=== PATIENT | male | born 1985 | race Caucasian/White ===

== ENCOUNTER 2017-04-30 11:19 | Emergency (ER) | payer BC ==
[~2017-04-30] VITALS: Ht 172.7 cm; Wt 77.0 kg
[2017-04-30 11:25] VITALS: Ht 172.7 cm; Wt 77.0 kg
--- NOTE | 2017-04-30 13:01 | RADRPT ---
PROCEDURE: XR Humerus. CLINICAL INDICATION: Skin abscess. History of ORIF. TECHNIQUE: AP and lateral views of the right humerus were obtained. COMPARISON: No prior studies are available for comparison. FINDINGS: Lateral plate and screw fixation of the left humeral head and proximal shaft is present. The remaind er of the right humerus appears intact. Shoulder and elbow joints are aligned. Soft tissues are with in normal limits.. .. The soft tissues are unremarkable. IMPRESSION: 1. Fixation hardware at the right proximal humerus. 2. No acute fracture or dislocation. RPTAT: GG .Cholo Huynh MD, Date Time Electronically viewed and signed by .Cholo Huynh MD, on 04/30/2017 13:00 .L/
[2017-04-30] MEDS ORDERED: LIDOCAINE 1% (MDV) 20 ML INJ SC ONE (13:30)
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
== END 2017-04-30 13:42 | disposition home or self-care (01) ==
LOC: FTE 11:19
DX: L02.413 Cutaneous abscess of right upper limb (principal)

== ENCOUNTER 2017-05-05 02:02 | Emergency (ER) | payer BC ==
[~2017-05-05] VITALS: Ht 170.2 cm; Wt 72.7 kg
[2017-05-05 02:11] VITALS: Ht 170.2 cm; Wt 72.7 kg
[2017-05-05] MEDS ORDERED: IBUP-1542 PO (02:53)
[2017-05-05] MEDS ORDERED: CEPH-443 PO (02:53)
--- NOTE | 2017-05-05 03:12 | ERD ---
ER Documentation Chief Complaint Date/Time DATE: 05/05/17 TIME: 03:07 Chief Complaint right upper arm abscess draining. i&d on 04/30 HPI 31-year-old male presents here in emergency department for a wound evaluation, patient had incision and drainage than on the right upper arm 5 days ago, it continues to be draining, he was supposed to be closed, continues to be open, a meat like structure is blocking the opening. Patient still continues to have the pain sharp pain 4/10, as was upon touching the area. ROS All systems reviewed and are negative except as per history of present illness. Medications Home Meds Active Scripts Ibuprofen* (Motrin*) 600 Mg Tab, 600 MG PO Q6H Y for PAIN AND OR ELEVATED TEMP, #30 TAB Prov:RUDY DOMINGUEZ SENSOR OPERATOR 05/05/17 Cephalexin* (Keflex*) 500 Mg Capsule, 500 MG PO QID for 10 Days, CAP Prov:RUDY DOMINGUEZ SENSOR OPERATOR 05/05/17 Reported Medications [none] Unknown Strength No Conflict Check 08/12/16 Allergies Allergies: Coded Allergies: No Known Allergy (Unverified , 02/29/16) PMhx/Soc Medical and Surgical Hx: pt denies Medical Hx History of Surgery: Yes (right shoulder surgery) Anesthesia Reaction: No Hx Neurological Disorder: No Hx Respiratory Disorders: No Hx Cardiac Disorders: No Hx Psychiatric Problems: No Hx Miscellaneous Medical Probl: No Hx Alcohol Use: Yes (social) Hx Substance Use: No Hx Tobacco Use: No Smoking Status: Current some day smoker FmHx Family History: No coronary disease, No diabetes, No other Physical Exam Vitals Vital Signs Date Time Temp Pulse Resp B/P Pulse Ox O2 Delivery O2 Flow Rate FiO2 05/05/17 02:11 97.7 73 16 154/92 99 Physical Exam GENERAL: The patient is well developed and appropriate for usual state of health, in no apparent distress. CHEST: Clear to auscultation bilaterally. There are no rales, wheezes or rhonchi. HEART: Regular rate and rhythm. No murmurs, clicks, rubs or gallops. No S3 or S4. ABDOMEN: Soft, nontender and nondistended. Good bowel sounds. No rebound or guarding. No gross peritonitis. No gross organomegaly or masses. No Garcia sign or McBurney point tenderness. BACK: No midline or flank tenderness. EXTREMITIES: Equal pulses bilaterally. There is no peripheral clubbing, cyanosis or edema. No focal swelling or erythema. Full range of motion. Grossly neurovascularly intact. NEURO: Alert and oriented. Cranial nerves 2-12 intact. Motor strength in all 4 extremities with 5/5 strength. Sensation grossly intact. Normal speech and gait. SKIN: There is no apparent rash or petechia. The skin is warm and dry. HEMATOLOGIC AND LYMPHATIC: There is no evidence of excessive bruising or lymphedema. No gross cervical, axillary, or inguinal lymphadenopathy. Procedures/MDM Medical decision making: Patient symptoms most likely consistent with a healing soft tissue abscess, at this time, there is a subcutaneous tissue blocking the opening, it is venting it from scarring up in closing, this time, there is no symptoms of any more infection, the wound was partially approximated using 1 staple healing process. Patient Keflex to prevent infection and ibuprofen for pain. Patient was advised to have a wound check in 2 days. Patient is advised to return to emergency department for any worsening symptoms. Patient was advised to have staple removed in 7-10 days. Disposition: Home. Stable. Departure Diagnosis: Primary Impression: Encounter for wound re-check Condition: Stable Patient Instructions: Wound Care RUDY DOMINGUEZ NP May 05, 2017 03:12
== END 2017-05-05 03:44 | disposition home or self-care (01) ==
LOC: FTE 02:02
DX: Z48.01 Encounter for change or removal of surgical wound dressing (principal); F17.210 Nicotine dependence, cigarettes, uncomplicated
CPT/HCPCS: 99283

== ENCOUNTER → 2017-09-25 | Outpatient (CLI) | END | disposition home or self-care (01) ==

== ENCOUNTER 2019-03-02 14:04 | Emergency (ER) | payer BC ==
[~2019-03-02] VITALS: Ht 170.2 cm; Wt 76.4 kg
[~2019-03-02 14:04] MED LIST: CEPH-443 PO; IBUP-1542 PO
[2019-03-02 14:06] VITALS: Ht 170.2 cm; Wt 76.4 kg
[2019-03-02] MEDS ORDERED: SOD CHLORIDE 0.9% 1,000 ML IV STA (14:32)
[2019-03-02 16:25] VITALS: BP 142/98; PULSE 77; RESP 20
--- NOTE | 2019-03-02 17:09 | ERD ---
ER Documentation Chief Complaint Chief Complaint SHAKEY CLAMMY DIZZINESS X 2 HOURS. HPI This is a 33-year-old male with no significant past medical history who is presenting for symptoms of near syncope. The patient reports waking up this morning and feeling fine. 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 He also reported feeling clammy. The symptoms waxed and waned for 1 to 2 hours before he decided to come to the emergency department. The patient reports poor sleep hygiene, not sleeping enough. He reports drinking less water recently than is typical for him. He also endorses not eating anything today. That said, the patient does not endorse any specific alleviating or exacerbating factors. The patient denies fever or chills. The patient has had no headache or vision changes. The patient does not endorse neck or back pain. The patient has had no chest pain or trouble breathing. The patient denies nausea or vomiting. The patient denies abdominal pain. The patient denies changes to bowel movements or urination. The patient has had no focal deficits. The patient has had no weakness or numbness or tingling to the face or extremities. ROS All systems reviewed and are negative except as per history of present illness. Medications Home Meds Discontinued Reported Medications [none] Unknown Strength No Conflict Check 08/12/16 Discontinued Scripts Ibuprofen* (Motrin*) 600 Mg Tab, 600 MG PO Q6H PRN for PAIN AND OR ELEVATED TEMP, #30 TAB Prov:RUDY DOMINGUEZ NP 05/05/17 Cephalexin* (Keflex*) 500 Mg Capsule, 500 MG PO QID for 10 Days, CAP Prov:RUDY DOMINGUEZ NP 05/05/17 Allergies Allergies: Coded Allergies: No Known Allergy (Unverified , 02/29/16) PMhx/Soc History of Surgery: Yes (right shoulder surgery) Anesthesia Reaction: No Hx Neurological Disorder: No Hx Respiratory Disorders: No Hx Cardiac Disorders: No Hx Psychiatric Problems: No Hx Miscellaneous Medical Probl: No Hx Alcohol Use: Yes (social) Hx Substance Use: No Hx Tobacco Use: No Smoking Status: Never smoker FmHx Family History: No diabetes Physical Exam Vitals Vital Signs Date Temp Pulse Resp B/P (MAP) Pulse Ox O2 O2 Flow FiO2 Time Delivery Rate 03/02/19 77 20 142/98 100 Room Air 16:25 (113) 03/02/19 97.4 102 18 173/98 99 14:06 (123) Physical Exam Const: No apparent distress, well-developed, well-nourished Head: Normocephalic, Atraumatic Eyes: Normal Conjunctiva. Extraocular movements intact. ENT: Normal External Ears, Nose and Mouth. Neck: Full range of motion. No meningismus. Resp: Clear to auscultation bilaterally, No wheezes, rales or rhonchi Cardio: Regular rate and rhythm. No murmurs, rubs or gallops Abd: Soft, non tender, non distended. Normal bowel sounds Skin: No petechiae or rashes Back: No midline tenderness. No CVA tenderness Ext: No cyanosis, or edema Neur: Awake and alert, oriented 4. Cranial nerves intact. No facial droop. Normal strength, sensation and coordination. Psych: Normal Mood and Affect Result Diagram: 03/02/19 1500 03/02/19 1500 Results 24 hrs Laboratory Tests Test 03/02/19 14:48 03/02/19 15:00 Bedside Glucose 95 mg/dL White Blood Count 7.3 10^3/ul Red Blood Count 5.53 10^6/ul Hemoglobin 16.1 g/dl Hematocrit 46.1 % Mean Corpuscular Volume 83.4 fl Mean Corpuscular Hemoglobin 29.1 pg Mean Corpuscular Hemoglobin Concent 34.9 g/dl Red Cell Distribution Width 12.9 % Platelet Count 232 10^3/UL Mean Platelet Volume 11.5 fl Immature Granulocytes % 0.400 % Neutrophils % 64.6 % Lymphocytes % 27.5 % Monocytes % 5.1 % Eosinophils % 1.9 % Basophils % 0.5 % Nucleated Red Blood Cells % 0.0 /100WBC Immature Granulocytes # 0.030 10^3/ul Neutrophils # 4.7 10^3/ul Lymphocytes # 2.0 10^3/ul Monocytes # 0.4 10^3/ul Eosinophils # 0.1 10^3/ul Basophils # 0.0 10^3/ul Nucleated Red Blood Cells # 0.0 10^3/ul Sodium Level 142 mmol/L Potassium Level 3.7 mmol/L Chloride Level 104 mmol/L Carbon Dioxide Level 24 mmol/L Anion Gap 14 Blood Urea Nitrogen 12 mg/dl Creatinine 0.92 mg/dl Est Glomerular Filtrat Rate mL/min > 60 mL/min Glucose Level 102 mg/dl Calcium Level 9.6 mg/dl Troponin I < 0.012 ng/ml Current Medications Medications Dose Sig/Kusum Start Time Status Last (Trade) Ordered Route PRN Stop Time Admin Dose Reason Admin Sodium 1,000 ml @ Q1H STAT 03/02/19 DC 03/02/19 Chloride 1,000 mls/hr IV 14:32 14:41 03/02/19 15:31 Procedures/MDM MDM The patient's presentation warrants further investigation. Previous medical records, if available, were reviewed. LABS The patient's laboratory testing was obtained and reviewed. No emergent treatment was required unless described below. CBC: No E/o systemic infection or severe anemia or thrombocytopenia Chemistry: No E/o severe acidosis or alkalosis or renal failure or diabetic ketoacidosis Troponin: No E/o acute ischemia EKG EKG read by me: Rate/Rhythm: Mild sinus bradycardia at 59 bpm Intervals: Normal [place]: Normal Impression: No evidence of acute ischemia. Sinus bradycardia, otherwise normal EKG IMAGING Imaging and Radiology interpretation reviewed. CXR FINDINGS: Heart size and pulmonary vascularity appears unremarkable. No acute infiltrates, edema, pneumothorax noted. IMPRESSION: No acute process noted radiographically Electronically viewed and signed by Physician Guillermo on 03/02/2019 15:28 TREATMENT/DISPOSITION The patient presents for a transient episode of lightheadedness. The patient endorses poor sleep hygiene, decreased oral intake today as well as decreased hydration. These are all possible etiologies of near syncope. The patient was given IV fluids in the emergency department with significant improvement of his symptoms. The patient was offered food, but he would like to eat after discharge. The patient has a reassuring physical exam. The patient is not clinically orthostatic. The patient is not dizzy. I have decreased suspicion for vertigo. The patient has no signs of emergent or symptomatic anemia. The patient does not have any emergent electrolyte or metabolic emergencies. I have decrease ean picion for a thyroid disorder. The patient is not toxic appearing. I have decreased suspicion for an infectious etiology of symptoms. The patient's EKG and troponin are reassuring. I have low suspicion for acute coronary syndrome. I do not see evidence of any emergent cardiac arrhythmia, which includes but is not limited to heart block, Brugada syndrome or WPW. The patient is mildly bradycardic, but he is a young healthy male. This is likely a normal variant. The patient is not hypotensive. I do not suspect bradycardia as the etiology of symptoms today. The patient has no heart murmurs or rales. There is no evidence of cardiomegaly on exam or chest xray. I have low suspicion for hypertrophic cardiomyopathy. I do not see evidence of CHF. The patient does not endorse any chest or pleuritic pain. The history is negative for bleeding or clotting disorders. The patient has not been involved in any recent prolonged trips or surgeries or hospitalizations. The patient has no calf tenderness or swelling. I have decreased suspicion for PE as the etiology of symptoms. The patient has no focal deficits. The neurologic exam is reassuring. I have decreased suspicion for cerebral ischemia. There was no trauma or injury. There is no personal or family history of cerebral aneurysm. I have decreased suspicion for SAH or other ICH. I have low suspicion for temporal arteritis, cavernous venous thrombosis, subdural hematoma, epidural hematoma, meningitis. The [place] Syncope Rule was applied and the patient was found to be low risk for a serious outcome. DISCHARGE Upon reevaluation of the patient, symptoms have improved. No emergent diagnoses were identified. At this time, I feel that the patient stable for discharge. The patient was instructed to follow-up with a primary care physician in 1-3 days. The patient will be given strict precautions with which to return to the emergency department. Prescriptions: None The patient's blood pressure was elevated at greater than 120/80 while in the emergency department. The patient was otherwise stable with no evidence of h ypertensive urgency or emergency. The patient does not require admission for blood pressure control. I have discussed with the patient the risks of hypertension. I have instructed the patient to return to the ER for any new or worsening symptoms including chest pain, shortness of breath, headache, blurred vision, confusion, nausea, vomiting or LOC. I have advised the patient to follow up with the primary care physician for outpatient monitoring and treatment for hypertension in 1-3 days. Disclaimer: Inadvertent spelling and grammatical errors are likely due to EHR/dictation software use and do not reflect on the overall quality of patient care. Note that the electronic time recorded on this note does not necessarily reflect the actual time of the patient encounter. Departure Diagnosis: Primary Impression: Near syncope Additional Impression: Lightheadedness Condition: Stable Patient Instructions: Near Syncope, Unknown Additional Instructions: Thank you for for coming to [facility] for your care today. Please ask your nurse or provider if you have questions about your care today and do not leave until all your questions have been answered. Please use any medications given as directed and follow-up with your doctor (or the doctor you were referred to) in the next 1-3 days. If you do not have a primary care doctor you may follow up at the [facility] or [facility] (listed below). You may also use motrin and tylenol as needed for fever and/or pain unless instructed otherwise by your provider or nurse. Indications for more urgent follow-up have been discussed, but you may return to the Emergency Department at ANY time for any worrisome or worsening symptoms. If you have abdominal pain, please know that no test or exam you received is perfect and you should follow up within 8 hours for continued pain. If you had any imaging studies today, such as an X-Ray or CT Scan, these studies will be reviewed later by a radiologist. You will be called if there are important findings that were not identified today, so make sure the contact information you provided at registration is correct. If you received any narcotic pain control medicine today, such as Vicodin, Morphine or Dilaudid, your coordination and judgment may be affected for a number of hours. Please do not drive or operate heavy machinery, and you may want someone to assist you at home. If you were given a prescription for narc otic medication, be aware that it is very addictive- use sparingly and only if necessary. PLEASE SEEK FURTHER EVALUATION AND MANAGEMENT AT YOUR DOCTORS OFFICE WITHIN THE NEXT 1-3 DAYS. IT IS YOUR RESPONSIBILITY TO MAKE AN APPOINTMENT FOR FOLOW-UP CARE. IF YOU HAVE A PRIMARY DOCTOR, PLEASE CALL THEIR OFFICE TO SCHEDULE AN APPOINTMENT FOR FOLLOW UP. IF YOU DO NOT HAVE A PRIMARY DOCTOR YOU CAN CALL OUR PHYSICIAN REFERRAL HOTLINE AT IF YOU CAN NOT AFFORD TO SEE A PHYSICIAN YOU CAN CHOSE FROM THE FOLLOWING [facility] CLINICS: [facility] [address] [facility]. [facility] [address] [facility] [address] [facility] [address] [place] [address] [facility]. [facility]. [address] ALEENA HERNANDEZ MD Mar 02, 2019 17:09
== END 2019-03-02 17:13 | disposition home or self-care (01) ==
LOC: E/R 14:04
DX: R55 Syncope and collapse (principal); R42 Dizziness and giddiness
CPT/HCPCS: 36415; 71045; 80048; 82962; 84484; 85025; 93005; 99284; J7030